=== PATIENT | female | born 1980 | race Caucasian/White ===

== ENCOUNTER 2016-12-18 11:10 | Outpatient (CLI) | payer MEDICAID | END 2016-12-18 11:11 | disposition home or self-care (01) | DX: R53.83 Other fatigue (principal); M79.7 Fibromyalgia; G43.909 Migraine, unspecified, not intractable, without status migrainosus ==

== ENCOUNTER 2016-12-31 09:57 | Outpatient (CLI) | payer MEDICAID | END 2016-12-31 09:58 | disposition home or self-care (01) | DX: G47.10 Hypersomnia, unspecified (principal); G47.8 Other sleep disorders; R06.83 Snoring ==

== ENCOUNTER 2017-04-01 19:46 | Outpatient (CLI) | payer MEDICAID | END 2017-04-01 19:47 | disposition home or self-care (01) | LOC: SC 19:46 | PROVIDERS: ATTEND Internal Medicine Pulmonary Disease | DX: G47.10 Hypersomnia, unspecified (principal); G47.8 Other sleep disorders | CPT/HCPCS: 95810 ==

== ENCOUNTER 2017-06-17 15:03 | Outpatient (CLI) | payer MEDICAID | END 2017-06-17 15:04 | disposition home or self-care (01) | LOC: SC 15:03 | PROVIDERS: ATTEND Internal Medicine Pulmonary Disease | DX: G47.10 Hypersomnia, unspecified (principal); R53.83 Other fatigue | CPT/HCPCS: 99212; 99213 ==

== ENCOUNTER 2017-09-05 21:19 | Emergency (ER) | payer MEDICAID ==
--- NOTE | 2017-09-05 21:59 | ED Physician Documentation ---
PD HPI FEMALE - Stated complaint Stated Complaint: FEMALE - Chief complaint Chief Complaint: General - History obtained from History obtained from: Patient - History of Present Illness Timing - onset: How many days ago (several) Timing - duration: Weeks (2) Timing - details: Gradual onset, Still present, Waxing and waning Associated symptoms: Other (Pain with BMs the past 2 weeks. Trace blood with stools at times. Some firm stools but not constipated. denies rectal intercourse. Pain did get worse last night during vaginal intercourse.). No: Fever, Vaginal pain, Vaginal bleeding, Vaginal discharge, Dysuria Similar symptoms before: Has not had sx before Recently seen: Not recently seen Review of Systems Constitutional: denies: Fever, Chills GI: denies: Abdominal Pain, Vomiting, Constipation, Diarrhea : denies: Dysuria, Frequency Skin: denies: Rash, Lesions PD PAST MEDICAL HISTORY - Past Medical History Cardiovascular: None Respiratory: Asthma Neuro: Headache/migraine Endocrine/Autoimmune: None Psych: Depression Musculoskeletal: Osteoarthritis, Fibromyalgia - Past Surgical History Past Surgical History: Yes General: Cholecystectomy /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 COORDINATOR: section - Present Medications Home Medications: Ambulatory Orders Medication Instructions Recorded Confirmed Albuterol Sulfate [Proair Hfa] 09/05/14 09/05/14 Cetirizine [ZyrTEC] 1 tab PO DAILY 09/05/14 09/05/14 Sumatriptan Succinate [Imitrex] 09/05/14 09/05/14 Topiramate [Topamax] 2 tab PO DAILY 09/05/14 09/05/14 Venlafaxine [Effexor] 1 tab PO DAILY 09/05/14 09/05/14 Docusate Sodium 200 mg PO DAILY #30 capsule 09/05/17 HYDROcod/ACETAM 5/325 [[place] 5/325] 1 tab PO Q6H PRN #12 tablet 09/05/17 Hydrocortisone Acetate [Anucort-Hc] 25 mg RC DAILY #5 supp.rect 09/05/17 Metronidazole [Flagyl] 500 mg PO BID #10 tablet 09/05/17 Sulfamethox/Trimeth 800/160 1 tab PO BID 09/05/17 09/05/17 [Bactrim Ds] - Allergies Allergies/Adverse Reactions: Allergies Allergy/AdvReac Type Severity Reaction Status Date / Time amoxicillin trihydrate * Allergy Dizziness Verified 09/05/14 11:16 [From Augmentin] potassium clavulanate * Allergy Dizziness Verified 09/05/14 11:16 [From Augmentin] - Social History Does the pt smoke?: No Smoking Status: Never smoker Does the pt drink ETOH?: No Does the pt have substance abuse?: No PD ED PE NORMAL - Vitals Vital signs reviewed: Yes - General General: Alert and oriented X 3, Well developed/nourished - HEENT HEENT: Pharynx benign - Neck Neck: Supple, no meningeal sign, No adenopathy - Cardiac Cardiac: RRR, No murmur - Respiratory Respiratory: Clear bilaterally - Abdomen Abdomen: Soft, Non tender - Female Female : Deferred - Rectal Rectal: Other (no perirectal fullness nor tenderness. external anal area normal. Digital exam with some fullness/inflammation on right side, without fluctuance. Possible little cleft feeling c/w fissure or tear. Anoscopy not done. Minimal stool in vault. ) - Back Back: No CVA TTP - Derm Derm: Normal color, Warm and dry Results - Vitals Vitals: Vital Signs - 24 hr 09/05/17 09/05/17 21:31 22:50 Heart Rate 118 H 99 Respiratory 18 16 Rate Blood Pressure 122/87 H 124/68 O2 Saturation 99 100 Oxygen O2 Source Room air PD MEDICAL DECISION MAKING - ED course Complexity details: reviewed results, considered differential (By digital exam, feels like some focal area of inflammation in rectal area without fluctuance nor bulging. Possible cleft c/w fissure. No perirectal fullness. ), d/w patient Departure - Departure Disposition: 01 Home, Self Care Clinical Impression: Proctitis, Rectal pain Serosal tear of rectum Qualifiers: Encounter type: initial encounter Qualified Code(s): S36.63XA - Laceration of rectum, initial encounter Condition: Stable Record reviewed to determine appropriate education?: Yes Follow-Up: Marguerite Cardona ARNP [Primary Care Provider] - Prescriptions: Docusate Sodium 200 mg PO DAILY #30 capsule HYDROcod/ACETAM 5/325 [[place] 5/325] 1 tab PO Q6H PRN #12 tablet PRN Reason: Pain Hydrocortisone Acetate [Anucort-Hc] 25 mg RC DAILY #5 supp.rect Metronidazole [Flagyl] 500 mg PO BID #10 tablet Comments: I think it feels like a small tear on the inside of the rectum rather than a hemorrhoid. There is some inflammation in the area so presume an infection to it. I do not feel an abscess feeling. It is close to the rectum opening and so does not seem like diverticulitis but more will be turned proctitis. The germs contributing to this are similar for diverticulitis. I would continue the Bactrim you are on for your skin infection and add metronidazole twice daily for the next 5 days. Use docusate stool softener 2 tablets daily for the next week and then to 1 tablet daily. Anucort suppository daily for 5 days for the inflammation in the rectal area. Add Tylenol or hydrocodone if needed for pains. Follow-up with your primary care or return to ER in the next several days if not improved. Discharge Date/Time: 09/05/17 22:51
[2017-09-05] MEDS ORDERED: metroNIDAZOLE 250 MG TABLET PO STA (22:29)
[2017-09-05] MEDS ORDERED: DOCUSATE SODIUM 100 MG CAPSULE PO STA (22:29)
[2017-09-05] MEDS ORDERED: HYDROCORTISONE 25 MG SUPPOSITORY PR STA (22:29)
[2017-09-05] MEDS ORDERED: HYDROcod/ACETAM 5/325 MG TABLET PO STA (22:29)
[2017-09-05] MEDS ORDERED: metroNIDAZOLE 250 MG TABLET PO ONE (22:47)
[2017-09-05 22:51] VITALS: BP 124/68
== END 2017-09-05 22:51 | disposition home or self-care (01) ==
LOC: ED 21:19
DX: K51.20 Ulcerative (chronic) proctitis without complications (principal); K62.89 Other specified diseases of anus and rectum; S36.63XA Laceration of rectum, initial encounter; X58.XXXA Exposure to other specified factors, initial encounter
CPT/HCPCS: 99283; A9270; J3490

== ENCOUNTER 2017-12-07 22:07 | Emergency (ER) | payer MEDICAID ==
[2017-12-07] MEDS ORDERED: HYDROcod/ACET 5/325 Prepack 4 PO STA (22:52)
--- NOTE | 2017-12-07 22:57 | ED Physician Documentation ---
PD HPI FEMALE - Stated complaint Stated Complaint: FEMALE - Chief complaint Chief Complaint: Abd Pain - History obtained from History obtained from: Patient, Family - History of Present Illness Timing - onset: Other (She has a history of an anal fissure and last night developed severe rectal pain. She is modestly constipated. There is a trace of bleeding.) Review of Systems Constitutional: denies: Fever, Chills Respiratory: reports: Reviewed and negative GI: reports: Reviewed and negative PD PAST MEDICAL HISTORY - Past Medical History Past Medical History: Yes Cardiovascular: None Respiratory: Asthma Neuro: Headache/migraine Endocrine/Autoimmune: None GI: Other Psych: Depression Musculoskeletal: Osteoarthritis, Fibromyalgia Other Past Medical History: Anal fissure - Past Surgical History Past Surgical History: Yes General: Cholecystectomy /SECURITY POLICE: section - Present Medications Home Medications: Ambulatory Orders Medication Instructions Recorded Confirmed Albuterol Sulfate [Proair Hfa] 09/05/14 09/05/14 Cetirizine [ZyrTEC] 1 tab PO DAILY 09/05/14 09/05/14 Sumatriptan Succinate [Imitrex] 09/05/14 09/05/14 Topiramate [Topamax] 2 tab PO DAILY 09/05/14 09/05/14 Venlafaxine [Effexor] 1 tab PO DAILY 09/05/14 09/05/14 Docusate Sodium 200 mg PO DAILY #30 capsule 09/05/17 HYDROcod/ACETAM 5/325 [[place] 5/325] 1 - 2 ea PO Q6H PRN #7 tablet 12/07/17 - Allergies Allergies/Adverse Reactions: Allergies Allergy/AdvReac Type Severity Reaction Status Date / Time amoxicillin trihydrate * Allergy Dizziness Verified 12/07/17 22:21 [From Augmentin] potassium clavulanate * Allergy Dizziness Verified 12/07/17 22:21 [From Augmentin] - Social History Does the pt smoke?: No Smoking Status: Never smoker Does the pt drink ETOH?: No Does the pt have substance abuse?: No - Immunizations Immunizations are current?: No - POLST Patient has POLST: No PD ED PE NORMAL - Vitals Vital signs reviewed: Yes - General General: Alert and oriented X 3, No acute distress - Abdomen Abdomen: Normal bowel sounds, Soft, Non tender - Rectal Rectal: Other (With Yancy H RN. She has a thrombosed left sided external hemorrhoid about 1.5cm diameter.) - Back Back: No CVA TTP, No spinal TTP - Neuro Neuro: Alert and oriented X 3, Normal speech Results - Vitals Vitals: Vital Signs - 24 hr 12/07/17 22:14 Temperature 36.4 C L Heart Rate 76 Respiratory 18 Rate Blood Pressure 122/87 H O2 Saturation 100 Oxygen O2 Source Room air Procedures - General procedure General procedure: After informed consent she requested incision and drainage of her thrombosed external hemorrhoid. The base was infiltrated with a 50-50 mixture of lidocaine with epinephrine and bupivacaine with excellent anesthetic control and then a Incision was made over the top of the hemorrhoid and the clot was expressed with relief of her pain. Departure - Departure Disposition: 01 Home, Self Care Clinical Impression: Thrombosed external hemorrhoid Condition: Good Record reviewed to determine appropriate education?: Yes Instructions: Galo Villanueva, Hemorrhoid Surg Dc Prescriptions: HYDROcod/ACETAM 5/325 [[place] 5/325] 1 - 2 ea PO Q6H PRN #7 tablet PRN Reason: Pain Comments: Hopefully after the incision your pain will be much better. Try to avoid the use of narcotic pain medication as much as possible and keep her stools very loose by drinking a lot of water, eating a high-fiber diet, and using stool softeners and laxatives. Follow-up with the surgeon as scheduled.
[2017-12-07 23:22] VITALS: BP 110/67
== END 2017-12-07 23:22 | disposition home or self-care (01) ==
LOC: ED 22:07
DX: K64.5 Perianal venous thrombosis (principal); J45.909 Unspecified asthma, uncomplicated; M79.7 Fibromyalgia; F32.9 Major depressive disorder, single episode, unspecified
CPT/HCPCS: 46083; 99283

== ENCOUNTER 2018-07-28 10:44 | Emergency (ER) | payer MEDICAID ==
[2018-07-28] MEDS ORDERED: SODIUM CHLORIDE 0.9% 1,000 ML IV ONE (13:04)
[2018-07-28] MEDS ORDERED: KETOROLAC 60 MG/2 ML VIAL IVP STA (13:04)
[2018-07-28] MEDS ORDERED: PROCHLORPERAZINE 10 MG/2 ML VIAL IVP STA (13:04)
[2018-07-28] MEDS ORDERED: diphenhydrAMINE INJ 50 MG/ML VIAL IVP STA (13:04)
--- NOTE | 2018-07-28 13:06 | ED Physician Documentation ---
History of Present Illness - Stated complaint Stated Complaint: MIGRAINE - Chief complaint Chief Complaint: General - Additonal information Additional information: hx from pt 37 y/o f s/p tubal ligation hx migraines mograine X 5 days R frontal same as prior no fever neck stiffness no CO exposure no trauma has topamax preventitive, sumatriptan abortive and also tried advil migraine s relief Review of Systems Constitutional: denies: Fever Cardiac: denies: Chest pain / pressure Respiratory: denies: Dyspnea GI: reports: Nausea : reports: Control (tubal). 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 HEENT: None Psych: Depression, Anxiety, Post traumatic stress disorder Musculoskeletal: Osteoarthritis, Fibromyalgia Derm: None - Past Surgical History Past Surgical History: Yes General: Cholecystectomy /GENERAL MERCHANDISE MANAGER: section, Tubal ligation - Present Medications Home Medications: Ambulatory Orders Medication Instructions Recorded Confirmed Albuterol Sulfate [Proair Hfa] 09/05/14 09/05/14 Cetirizine [ZyrTEC] 1 tab PO DAILY 09/05/14 09/05/14 Sumatriptan Succinate [Imitrex] 09/05/14 09/05/14 Topiramate [Topamax] 2 tab PO DAILY 09/05/14 09/05/14 Venlafaxine [Effexor] 1 tab PO DAILY 09/05/14 09/05/14 Docusate Sodium 200 mg PO DAILY #30 capsule 09/05/17 HYDROcod/ACETAM 5/325 [[place] 5/325] 1 - 2 ea PO Q6H PRN #7 tablet 12/07/17 - Allergies Allergies/Adverse Reactions: Allergies Allergy/AdvReac Type Severity Reaction Status Date / Time amoxicillin trihydrate * Allergy Dizziness Verified 12/07/17 22:21 [From Augmentin] potassium clavulanate * Allergy Dizziness Verified 12/07/17 22:21 [From Augmentin] - Social History Does the pt smoke?: No Smoking Status: Never smoker Does the pt drink ETOH?: No Does the pt have substance abuse?: No - Immunizations Immunizations are current?: Yes - POLST Patient has POLST: No PD ED PE NORMAL - Vitals Vital signs reviewed: Yes - General General: Alert and oriented X 3 - HEENT HEENT: PERRL, Other (globes soft, no TA TTP) - Neck Neck: Supple, no meningeal sign - Cardiac Cardiac: RRR - Respiratory Respiratory: No respiratory distress, Clear bilaterally - Abdomen Abdomen: Soft, Non tender - Derm Derm: Normal color - Neuro Neuro: Alert and oriented X 3 Eye Opening: Spontaneous Motor: Obeys Commands Verbal: Oriented GCS Score: 15 Results - Vitals Vitals: Vital Signs - 24 hr 07/28/18 11:27 Temperature 36.2 C L Heart Rate 90 Respiratory 16 Rate Blood Pressure 119/92 H O2 Saturation 98 Oxygen O2 Source Room air PD MEDICAL DECISION MAKING - ED course ED course: pt felt better dc home Departure - Departure Disposition: 01 Home, Self Care Clinical Impression: Migraine Qualifiers: Migraine type: unspecified Status migrainosus presence: without status migrainosus Intractability: not intractable Qualified Code(s): G43.909 - Migraine, unspecified, not intractable, without status migrainosus Condition: Good Instructions: ED Headache Migraine Forms: Activity restrictions
[2018-07-28 16:20] VITALS: BP 121/80
== END 2018-07-28 16:23 | disposition home or self-care (01) ==
LOC: ED 10:44
DX: G43.909 Migraine, unspecified, not intractable, without status migrainosus (principal)
CPT/HCPCS: 96361; 96374; 96375; 99283; J1200

== ENCOUNTER 2018-09-04 07:05 | Outpatient (CLI) | payer MEDICAID ==
--- NOTE | 2018-09-05 10:50 | Ultrasound Report ---
Reason: DECREASED DORSALIS PEDIS PULSE Procedure Date: 09/04/2018 Accession Number: [id number] / [id number] Procedure: US - Duplex Lwr Ext Arterial Bilat CPT Code: FULL RESULT: EXAM: Bilateral Lower Extremity Arterial Doppler Ultrasound EXAM DATE: 09/04/2018 07:35 PM. CLINICAL HISTORY: Decreased dorsalis pedis pulse. COMPARISON: None. TECHNIQUE: Real-time sonographic vascular imaging was performed by the sod farmer, utilizing color-flow, Doppler flow, and spectral analysis. Multiple ict sales representative static images were saved for review. FINDINGS: No hemodynamically significant stenosis, occlusion, dissection or aneurysm is noted in the arterial system of both lower extremities. With the exception of the monophasic waveforms in both profunda femoral arteries, all the evaluated vessels demonstrate triphasic or biphasic waveforms. Spectral waveform analysis is as follows: Right Leg: DISTRIBUTION FIELD ENGINEER: PSV 136.0 cm/sec. Triphasic waveform. PSFA: PSV 124.0 cm/sec. Triphasic waveform. MSFA: PSV 96.8 cm/sec. Triphasic waveform. DSFA: PSV 86.4 cm/sec. Triphasic waveform. PFA: PSV 92.2 cm/sec. Monophasic waveform. POP: PSV 61.0 cm/sec. Triphasic waveform. JESSIE: PSV 57.9 cm/sec. Triphasic waveform. HACK SAW OPERATOR: PSV 42.4 cm/sec. Biphasic waveform. PER: PSV 48.1 cm/sec. Triphasic waveform. DPA: PSV 38.8 cm/sec. Baseline waveform. Left Leg: DISTRIBUTION FIELD ENGINEER: PSV 103.4 cm/sec. Triphasic waveform. PSFA: PSV 111.8 cm/sec. Triphasic waveform. MSFA: PSV 117.6 cm/sec. Triphasic waveform. DSFA: PSV 98.3 cm/sec. Triphasic waveform. PFA: PSV 90.8 cm/sec. Monophasic waveform. POP: PSV 34.7 cm/sec. Triphasic waveform. JESSIE: PSV 44.1 cm/sec. Triphasic waveform. HACK SAW OPERATOR: PSV 45.9 cm/sec. Biphasic waveform. PER: PSV 53.8 cm/sec. Triphasic waveform. DPA: PSV 40 cm/sec. Biphasic waveform. IMPRESSION: 1. No hemodynamically significant occlusion, dissection, aneurysm or stenosis. RADIA
== END 2018-09-04 07:06 | disposition home or self-care (01) ==
LOC: DI 07:05
PROVIDERS: ATTEND Nurse Practitioner Family
DX: R09.89 Other specified symptoms and signs involving the circulatory and respiratory systems (principal)
CPT/HCPCS: 93925

== ENCOUNTER 2018-12-29 12:57 | Outpatient (CLI) | payer MEDICAID ==
--- NOTE | 2018-12-29 15:46 | XRAY Report ---
Reason: KNEE PAIN,RIGHT Procedure Date: 12/29/2018 Accession Number: [id number] / [id number] Procedure: XR - Knee 4 View RT CPT Code: FULL RESULT: EXAM: RIGHT KNEE RADIOGRAPHY EXAM DATE: 12/29/2018 02:11 PM. CLINICAL HISTORY: Knee pain, right. COMPARISON: KNEE 4 VIEW BILAT 05/02/2016 1:28 PM. TECHNIQUE: 3 views. FINDINGS: Bones: Normal. No fractures or bone lesions. Joints: Mild loss of joint space height of both weightbearing compartments, similar to 2016. No subluxation or effusion. Soft Tissues: Normal. No soft tissue swelling. IMPRESSION: No acute fracture or dislocation and no significant joint effusion. RADIA
== END 2018-12-29 12:58 | disposition home or self-care (01) ==
LOC: DI 12:57
PROVIDERS: ATTEND Physician Assistant Medical
DX: M25.561 Pain in right knee (principal)

== ENCOUNTER 2019-02-27 05:51 | Day surgery (SDC) | payer MEDICAID ==
[2019-02-27] MEDS ORDERED: CEFAZOLIN SODIUM IN 0.9 % NACL 0 GM/0 ML BAG IV ONE (06:33)
[2019-02-27] MEDS ORDERED: LACTATED RINGERS 1,000 ML IV ONE (07:01)
--- NOTE | 2019-02-27 07:13 | ANESTHESIA ---
Pre-Anesthesia VS, & Labs - Diagnosis recurrent anal fissure - Procedure EUA, anal fissurotomy Vital Signs: Temp Pulse Resp BP Pulse Ox 36.4 C L 86 16 121/81 H 100 02/27/19 06:46 02/27/19 06:46 02/27/19 06:46 02/27/19 06:46 02/27/19 06:46 Height 5 ft 7 in Weight (kg) 97.7 kg Body Mass Index 31.3 - NPO >8 hours - Is Patient ?: No Home Medications and Allergies Home Medications: Ambulatory Orders Cyclobenzaprine [Flexeril] 10 mg PO QPM PRN 02/17/19 Montelukast Sodium 10 mg PO DAILY 02/17/19 Topiramate 100 mg PO QPM 02/17/19 Albuterol Sulfate [Proair Hfa] 2 puffs INH Q4HR PRN 09/05/14 Cetirizine [ZyrTEC] 10 mg PO DAILY 09/05/14 Sumatriptan Succinate [Imitrex] 100 mg PO ONCE PRN 09/05/14 Venlafaxine [Effexor] 150 tab PO DAILY 09/05/14 Cyclobenzaprine [Flexeril] 10 mg PO QPM PRN 02/17/19 Montelukast Sodium 10 mg PO DAILY 02/17/19 Topiramate 100 mg PO QPM 02/17/19 Allergies/Adverse Reactions: Allergies Allergy/AdvReac Type Severity Reaction Status Date / Time amoxicillin trihydrate * Allergy Dizziness, Verified 02/17/19 15:33 [From Augmentin] nausea potassium clavulanate * Allergy Dizziness, Verified 02/17/19 15:33 [From Augmentin] nausea fluticasone [From Flonase] AdvReac Unknown Verified 02/27/19 07:02 Anes History & Medical History - Anesthetic History Anesthesia Complications: reports: No previous complications Family history of Anesthesia Complications: Denies Family history of Malignant Hyperthermia: Denies - Medical History Cardiovascular: reports: Arrhythmia Pulmonary: reports: Asthma Gastrointestinal: reports: GERD Urinary: reports: Chronic bladder infection Neuro: reports: Migraines Musculoskeletal: reports: Osteoarthritis, Fibromyalgia, Other Endocrine/Autoimmune: reports: None Blood Disorders: reports: None Skin: reports: None Smoking Status: Never smoker - Surgical History General: Cholecystectomy Gynecologic: section, Tubal ligation Exam General: Alert, Oriented x3, Cooperative Dental: WNL Mouth Openin Fingerbreadth Neck Mobility: Normal Mallampati classification: II Thyromental Distance: 4-6 cm Respiratory: Lungs clear, Normal breath sounds Cardiovascular: Regular rate Neurological: Normal speech Mental/Cognitive Status: Alert/Oriented X3, Normal for patient Cognitive Status: Within normal limits Plan Anesthesia Type: General Consent for Procedure(s) Verified and Reviewed: Yes Code Status: Attempt Resuscitation ASA classification: 2-Mild systemic disease Is this case an emergency?: No
[2019-02-27] MEDS ORDERED: BUPIVACAINE 0.5%-EPI 1:200000 PF 30 ML VIAL ONE (07:24)
[2019-02-27] MEDS ORDERED: LIDOCAINE 1% 50 ML MDV ONE (07:24)
[2019-02-27] MEDS ORDERED: LIDOCAINE OINTMENT 5% 35.44 GM TUBE ONE (07:24)
[2019-02-27] MEDS ORDERED: GLYCOPYRROLATE 1 MG/5 ML VIAL IVP ONE (07:30)
[2019-02-27] MEDS ORDERED: LIDOCAINE-MPF 2% 5 ML VIAL IM ONE (07:30)
[2019-02-27] MEDS ORDERED: PROPOFOL 200 MG/20 ML VIAL IVP ONE (07:30)
[2019-02-27] MEDS ORDERED: ONDANSETRON 4 MG/2 ML VIAL IVP ONE (07:30)
[2019-02-27] MEDS ORDERED: ROCURONIUM 50 MG/5 ML VIAL IVP ONE (07:30)
[2019-02-27] MEDS ORDERED: DEXAMETHASONE 4 MG/ML VIAL IVP ONE (07:30)
[2019-02-27] MEDS ORDERED: KETOROLAC 30 MG/ML VIAL IVP ONE (07:30)
[2019-02-27] MEDS ORDERED: fentaNYL 100 MCG/2 ML VIAL IVP ONE (07:30)
[2019-02-27] MEDS ORDERED: MIDAZOLAM 2 MG/2 ML VIAL IVP ONE (07:30)
[2019-02-27] MEDS ORDERED: NEOSTIGMINE 0.5 MG/1 ML 10 ML MDV IVP ONE (07:30)
[2019-02-27] MEDS ORDERED: LIDOCAINE OINTMENT 5% 35.44 GM TUBE TOP ONE (08:16)
[2019-02-27] MEDS ORDERED: BUPIVACAINE 0.5%-EPI 1:200000 PF 30 ML VIAL SUBQ ONE ×2 (08:17)
[2019-02-27] MEDS ORDERED: LIDOCAINE 1% 10 ML MDV SUBQ ONE ×2 (08:17)
[2019-02-27] MEDS ORDERED: LIDOCAINE JELLY 2% 5 ML TUBE TOP ONE (08:30)
[2019-02-27] MEDS ORDERED: HYDROcod/ACETAM 5/325 MG TABLET PO PRN (08:32)
[2019-02-27] MEDS ORDERED: ONDANSETRON 4 MG/2 ML VIAL IVP PRN (08:32)
[2019-02-27] MEDS ORDERED: HYDROmorphone 0.5 MG/0.5 ML SYRINGE IVP PRN (08:32)
--- NOTE | 2019-02-27 08:39 | OPERATIVE REPORT ---
Operative Report - General Planned Procedure: Exam under anesthesia, anal fissurectomy, anal dilation Pre-Op Diagnosis: Recurrent anal fissure Procedure Performed: Exam under anesthesia, anal dilation, anal fissurectomy, excision of anal skin tag x2 (old external hemorrhoids) Post Op Diagnosis: Same - Procedure Note Primary Surgeon: Hesham Dow MD Anesthesia Provider: Chaz Ramos CRNA Anesthesia Technique: General ET tube, Local (42 mL of 1% lidocaine and 0.5% marcaine with epinephrine mixed 50/50.) IV Fluids (mL): 500 Estimated Blood Loss (mL): 5 Complications: None. - Other Other Information/Narrative: OPERATIVE DESCRIPTION/REPORT: After verbal and written informed consent was obtained detailing the risks of infection, bleeding requiring transfusion with its risks, nerve injury, and , and after I met with the patient confirming the surgery and the site of the surgery, the patient was brought to the operative suite and placed supine on the operating table. Great care was taken to avoid pressure points to prevent pressure necrosis or nerve injury. Monitoring devices were applied along with TEDs and pneumatic compressive stockings (to prevent DVT). The patient received preoperative antibiotics for surgical prophylaxis. Chaz Ramos CRNA sedated and anesthetized the patient for the entire procedure. The patient was then placed prone in the ashlie-knife position, again taking care to ensure that we pre vented pressure point. The patients buttocks were taped apart and the patient was prepped and draped in the usual sterile manner. A "time in" then confirmed that the patient was identified with 3 identifiers (name, date and medical record number), the history and physical was in the chart, the signed consent confirming the procedure was in the chart, the patient was in the correct position, the aforementioned prophylactic measures were in place or given, we had the correct personnel and equipment to complete the procedure and that anesthesia, surgery and nursing were given an opportunity to express any concerns. With the agreement of everyone in the room, we proceeded with the operation. Gentle and progressive dilation of the patient's anus commenced with a water- soluble lubricant. One finger, 2 finger, and finally 3 finger dilation was performed. A bivalve anal dilator was then inserted into the patient's anus and again using the aid of a water-soluble lubricant and the fissure was clearly noted at the 12 o'clock position. It was a little bit biased more towards the 10 o'clock position than the 2 o'clock position but the majority of the lesion was centered about the 12 o'clock position. This fissure was excised using serial application of Bovie electrocautery. With the fissure having been addressed there were 2 small remnant external hemorrhoids/skin tags (located at the 2 and 5 o'clock position). These were excised using serial application of the harmonic scalpel. There was no bleeding. A roll of gelfoam and lidocaine jelly was fashioned and inserted into the patients anus. The perianal area was injected with 30 mL of half percent Marcaine with epinephrine circumferentially. At this point a time out was performed that confirmed that all the counts were correct, the procedure that was performed, the blood loss, the IV fluids administered, and the patients condition. Having tolerated the procedure well, the patient was subsequently taken to short stay in good and stable condition. Dragon disclaimer: This document was created in part using voice recognition technology. Because of the inherent limitations of the system ([employer]'s Dragon Dict[employer] user manual states that the licensee understands that speech recognition is a statistical process and that recognition errors are inherent in the process), occasional same sounding word substitutions and grammatical errors do occur and persist despite proofreading. Please read this document for context.
[2019-02-27 10:04] VITALS: BP 112/77
== END 2019-02-27 05:52 | disposition home or self-care (01) ==
LOC: SDS 05:51
PROVIDERS: ATTEND Surgery
PROC: 0DBQXZZ Excision of Anus, External Approach (ICD-10-PCS; principal; 2019-02-27 07:30)
DX: K60.2 Anal fissure, unspecified (principal); K64.4 Residual hemorrhoidal skin tags; J45.909 Unspecified asthma, uncomplicated; R56.9 Unspecified convulsions; F41.9 Anxiety disorder, unspecified; G43.909 Migraine, unspecified, not intractable, without status migrainosus; M79.7 Fibromyalgia; M19.90 Unspecified osteoarthritis, unspecified site; Z79.51 Long term (current) use of inhaled steroids; Z87.891 Personal history of nicotine dependence
CPT/HCPCS: 46257; A9270; J3490; J7120

== ENCOUNTER 2019-06-14 12:07 | Emergency (ER) | payer MEDICAID ==
[2019-06-14 12:12] VITALS: BP 121/85
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
[2019-06-14] MEDS ORDERED: NAPROXEN 250 MG TABLET PO STA (13:09)
--- NOTE | 2019-06-14 13:12 | XRAY Report ---
Reason: R elbow pain Procedure Date: 06/14/2019 Accession Number: [id number] / [id number] Procedure: XR - Elbow 3 View RT CPT Code: FULL RESULT: EXAM: RIGHT ELBOW RADIOGRAPHY EXAM DATE: 06/14/2019 12:39 PM. CLINICAL HISTORY: R elbow pain. COMPARISON: None. TECHNIQUE: 3 views. FINDINGS: Bones: Normal. No fractures or bone lesions. Joints: Normal. No effusion. No subluxation. Soft Tissues: Normal. No soft tissue swelling. IMPRESSION: Normal elbow radiography. RADIA
== END 2019-06-14 13:24 | disposition home or self-care (01) ==
LOC: ED 12:07
DX: S50.01XA Contusion of right elbow, initial encounter (principal); W22.8XXA Striking against or struck by other objects, initial encounter
CPT/HCPCS: 73080; 99282; 99283; A9270

== ENCOUNTER 2020-04-20 12:56 | Outpatient (CLI) | payer MEDICAID ==
[2020-04-20 13:14] LABS: BASOPHILS % (AUTO) 0.5 %; EOSINOPHILS # (AUTO) 0.1 10^3/uL (0.0-0.7); EOSINOPHILS % (AUTO) 1.6 %; HGB - HEMOGLOBIN 14.5 g/dL (12.0-16.0); LYMPHOCYTES % (AUTO) 27.3 %; MEAN CORPUSCULAR HGB CONC 33.6 g/dL (32.0-36.0); MEAN CORPUSCULAR VOLUME 89.3 fL (81.0-99.0); MEAN PLATELET VOLUME 9.5 fL (7.9-10.8); MONOCYTES # (AUTO) 0.5 10^3/uL (0.0-1.0); MONOCYTES % (AUTO) 7.4 %; NEUTROPHILS # (AUTO) 4.6 10^3/uL (1.5-6.6); NEUTROPHILS % (AUTO) 62.8 %; PLT - PLATELET COUNT 247 10^3/uL (130-450); RED BLOOD COUNT 4.84 10^6/uL (4.20-5.40); RED CELL DISTRIBUTION WIDTH 12.3 % (12.0-15.0); WHITE BLOOD COUNT 7.3 x10^3/uL (4.8-10.8)
[2020-04-20 13:47] LABS: ALBUMIN 4.3 g/dL (3.2-5.5); ALBUMIN/GLOBULIN RATIO 1.2 (1.0-2.2); ALKALINE PHOSPHATASE 80 IU/L (42-121); ALT ALANINE AMINOTRANSFERASE 12 IU/L (10-60); AST ASPARTATE AMINOTRANSFERASE 14 IU/L (10-42); BILIRUBIN,TOTAL 0.5 mg/dL (0.2-1.0); BUN - BLOOD UREA NITROGEN 15 mg/dL (6-20); CALCIUM 10.3 mg/dL (8.5-10.3); CARBON DIOXIDE - CO2 22 mmol/L (21-32); CHLORIDE 108 mmol/L (101-111); CHOL/HDL RATIO 4.7 (<4.4); CHOLESTEROL 208 mg/dL; CREATININE 0.7 mg/dL (0.4-1.0); GLUCOSE 90 mg/dL (70-100); HDL CHOLESTEROL 44 mg/dL; LDL CHOLESTEROL,CALCULATED 106 mg/dL; LDL/HDL RATIO 2.4 (<4.4); SODIUM 137 mmol/L (135-145); TOTAL PROTEIN 7.8 g/dL (6.7-8.2); VLDL CHOLESTEROL 58 mg/dL
== END 2020-04-20 12:57 | disposition home or self-care (01) ==
LOC: LAB 12:56
PROVIDERS: ATTEND Nurse Practitioner
DX: E53.8 Deficiency of other specified B group vitamins (principal); M79.7 Fibromyalgia; E55.9 Vitamin D deficiency, unspecified; F41.9 Anxiety disorder, unspecified; Z79.899 Other long term (current) drug therapy
CPT/HCPCS: 36415; 80050; 80061; 82306; 83721

== ENCOUNTER 2020-08-04 14:19 | Outpatient (CLI) | payer MEDICAID ==
--- NOTE | 2020-08-04 14:21 | XRAY Report ---
PROCEDURE: Cervical Spine 2 View INDICATIONS: RIGHT CERVICAL RADICULOPATHY TECHNIQUE: 3 view(s) of the cervical spine were acquired. COMPARISON: None. FINDINGS: Bones: No fractures or dislocations to the T1 level. The lateral masses of C1 appear intact on the odontoid view. No suspicious bony lesions. No acute compression fractures. Mild cervical spondyliti c changes of the lower spine cervical spine most pronounced at C5-6. Soft tissues: No prevertebral soft tissue swelling. IMPRESSION: Cervical spine without acute fracture or malalignment. Mild lower cervical spondylosis. Reviewed by: Ghassan Posey MD on 08/04/2020 2:19 PM PST Approved by: Ghassan Posey MD on 08/04/2020 2:19 PM PST Station ID: [id number]
== END 2020-08-04 23:59 | disposition home or self-care (01) ==
LOC: DI.WCP 14:19
PROVIDERS: ATTEND Family Medicine
DX: M47.812 Spondylosis without myelopathy or radiculopathy, cervical region (principal)
CPT/HCPCS: 72040

== ENCOUNTER 2020-12-28 11:28 | Outpatient (CLI) | payer MEDICAID ==
[2020-12-28 11:52] LABS: BASOPHILS % (AUTO) 0.8 %; EOSINOPHILS # (AUTO) 0.1 10^3/uL (0.0-0.7); EOSINOPHILS % (AUTO) 1.5 %; HCT - HEMATOCRIT 45.1 % (37.0-47.0); HGB - HEMOGLOBIN 14.8 g/dL (12.0-16.0); LYMPHOCYTES # (AUTO) 1.8 10^3/uL (1.5-3.5); LYMPHOCYTES % (AUTO) 34.4 %; MEAN CORPUSCULAR HEMOGLOBIN 29.1 pg (27.0-31.0); MEAN CORPUSCULAR HGB CONC 32.8 g/dL (32.0-36.0); MEAN CORPUSCULAR VOLUME 88.8 fL (81.0-99.0); MEAN PLATELET VOLUME 9.2 fL (7.9-10.8); MONOCYTES # (AUTO) 0.4 10^3/uL (0.0-1.0); MONOCYTES % (AUTO) 6.6 %; NEUTROPHILS % (AUTO) 56.5 %; PLT - PLATELET COUNT 277 10^3/uL (130-450); RED BLOOD COUNT 5.08 10^6/uL (4.20-5.40); WHITE BLOOD COUNT 5.3 x10^3/uL (4.8-10.8)
[2020-12-28 12:24] LABS: THYROID STIMULATING HORMONE 1.72 uIU/mL (0.34-5.60)
[2020-12-28 12:25] LABS: FREE T3 2.88 pg/mL (2.5-3.9)
[2020-12-28 12:26] LABS: FREE T4 (FREE THYROXINE) 0.77 ng/dL (0.58-1.64)
[2020-12-28 12:31] LABS: ALBUMIN 4.7 g/dL (3.2-5.5); ALBUMIN/GLOBULIN RATIO 1.5 (1.0-2.2); BILIRUBIN,TOTAL 0.7 mg/dL (0.2-1.0); CALCIUM 11.1 mg/dL (8.5-10.3); CREATININE 0.8 mg/dL (0.4-1.0); POTASSIUM 2.9 mmol/L (3.5-5.0); TOTAL PROTEIN 7.8 g/dL (6.7-8.2)
== END 2020-12-28 11:29 | disposition home or self-care (01) ==
LOC: LAB 11:28
PROVIDERS: ATTEND Nurse Practitioner
DX: R63.4 Abnormal weight loss (principal); Z79.899 Other long term (current) drug therapy; N92.0 Excessive and frequent menstruation with regular cycle
CPT/HCPCS: 36415; 80050; 84439; 84481

== ENCOUNTER 2021-01-06 11:42 | Outpatient (CLI) | payer MEDICAID ==
[2021-01-06 12:16] LABS: CALCIUM 10.1 mg/dL (8.5-10.3); CREATININE 0.7 mg/dL (0.4-1.0); POTASSIUM 3.8 mmol/L (3.5-5.0)
== END 2021-01-06 11:43 | disposition home or self-care (01) ==
LOC: LAB 11:42
PROVIDERS: ATTEND Family Medicine
DX: E87.6 Hypokalemia (principal)
CPT/HCPCS: 36415; 80048; 83735

== ENCOUNTER 2021-02-27 14:30 | Outpatient (CLI) | payer MEDICAID ==
[2021-02-27 14:49] LABS: CREATININE 0.8 mg/dL (0.4-1.0); MAGNESIUM 2.2 mg/dL (1.7-2.8); POTASSIUM 3.7 mmol/L (3.5-5.0)
== END 2021-02-27 23:59 | disposition home or self-care (01) ==
LOC: LAB 14:30
PROVIDERS: ATTEND Family Medicine
DX: E87.6 Hypokalemia (principal); G43.909 Migraine, unspecified, not intractable, without status migrainosus
CPT/HCPCS: 36415; 80048; 83735

== ENCOUNTER 2021-07-07 12:47 | Emergency (ER) | payer OTHER, MEDICAID ==
[2021-07-07 13:23] VITALS: BP 136/86
== END 2021-07-07 14:35 | disposition left against medical advice (07) ==
LOC: ED 12:47
DX: Z53.21 Procedure and treatment not carried out due to patient leaving prior to being seen by health care provider (principal)

== ENCOUNTER 2021-09-15 16:00 | Outpatient (CLI) | payer MEDICAID ==
[2021-09-15 16:48] LABS: BASOPHILS # (AUTO) 0.1 10^3/uL (0.0-0.1); BASOPHILS % (AUTO) 0.5 %; EOSINOPHILS # (AUTO) 0.1 10^3/uL (0.0-0.7); EOSINOPHILS % (AUTO) 1.4 %; HCT - HEMATOCRIT 42.5 % (37.0-47.0); HGB - HEMOGLOBIN 14.5 g/dL (12.0-16.0); LYMPHOCYTES # (AUTO) 2.2 10^3/uL (1.5-3.5); LYMPHOCYTES % (AUTO) 21.8 %; MEAN CORPUSCULAR HEMOGLOBIN 29.6 pg (27.0-31.0); MEAN CORPUSCULAR HGB CONC 34.1 g/dL (32.0-36.0); MEAN CORPUSCULAR VOLUME 86.7 fL (81.0-99.0); MEAN PLATELET VOLUME 9.3 fL (7.9-10.8); MONOCYTES # (AUTO) 0.7 10^3/uL (0.0-1.0); MONOCYTES % (AUTO) 6.6 %; NEUTROPHILS % (AUTO) 69.2 %; PLT - PLATELET COUNT 320 10^3/uL (130-450); WHITE BLOOD COUNT 10.1 x10^3/uL (4.8-10.8)
--- NOTE | 2021-09-15 16:52 | XRAY Report ---
PROCEDURE: Lumbar Spine 2 View INDICATIONS: LUMBAR SPINE PAIN TECHNIQUE: 2 views of the lumbar spine were acquired. COMPARISON: None. FINDINGS: Bones: 5 [id number] vertebrae are present. There is trace retrolisthesis of L2 on L3, L3 on L4 , L4 on L5. Minimal foraminal narrowing is noted L4-5, L5-S1. No vertebral body compression fractures . No suspicious bony lesions. Soft tissues: Overlying bowel gas pattern is normal. No suspicious soft tissue calcifications. IMPRESSION: Early degenerative changes most notable at L4-5 and L5-S1. Reviewed by: Binta Muhammad MD on 09/15/2021 4:51 PM PST Approved by: Binta Muhammad MD on 09/15/2021 4:51 PM PST Station ID: [id number]
[2021-09-15 17:06] LABS: ALBUMIN 4.1 g/dL (3.2-5.5); ALBUMIN/GLOBULIN RATIO 1.2 (1.0-2.2); ALKALINE PHOSPHATASE 86 IU/L (42-121); ALT ALANINE AMINOTRANSFERASE 14 IU/L (10-60); AST ASPARTATE AMINOTRANSFERASE 16 IU/L (10-42); BILIRUBIN,TOTAL 0.5 mg/dL (0.2-1.0); BUN - BLOOD UREA NITROGEN 10 mg/dL (6-20); CALCIUM 9.7 mg/dL (8.5-10.3); CARBON DIOXIDE - CO2 28 mmol/L (21-32); CHLORIDE 99 mmol/L (101-111); CHOL/HDL RATIO 4.8 (<4.4); CHOLESTEROL 187 mg/dL; CREATININE 0.7 mg/dL (0.4-1.0); GFR - MDRD 91 (>89); GLUCOSE 101 mg/dL (70-100); HDL CHOLESTEROL 39 mg/dL; LDL CHOLESTEROL,CALCULATED 76 mg/dL; LDL/HDL RATIO 1.9 (<4.4); POTASSIUM 3.8 mmol/L (3.5-5.0); SODIUM 135 mmol/L (135-145); TOTAL PROTEIN 7.6 g/dL (6.7-8.2); TRIGLYCERIDES 361 mg/dL; VLDL CHOLESTEROL 72 mg/dL
[2021-09-15 17:39] LABS: THYROID STIMULATING HORMONE 1.52 uIU/mL (0.34-5.60)
== END 2021-09-15 16:01 | disposition home or self-care (01) ==
LOC: LAB 16:00
PROVIDERS: ATTEND Family Medicine
DX: E87.6 Hypokalemia (principal); E53.8 Deficiency of other specified B group vitamins; E55.9 Vitamin D deficiency, unspecified; F41.9 Anxiety disorder, unspecified; M43.16 Spondylolisthesis, lumbar region; M48.061 Spinal stenosis, lumbar region without neurogenic claudication; M48.07 Spinal stenosis, lumbosacral region
CPT/HCPCS: 36415; 80050; 80061; 82306; 82607; 83721

== ENCOUNTER 2023-01-23 10:21 | Outpatient (CLI) | payer OTHER ==
[2023-01-23 10:36] LABS: BASOPHILS % (AUTO) 0.5 %; EOSINOPHILS # (AUTO) 0.1 10^3/uL (0.0-0.7); EOSINOPHILS % (AUTO) 1.4 %; HCT - HEMATOCRIT 43.2 % (37.0-47.0); HGB - HEMOGLOBIN 14.3 g/dL (12.0-16.0); LYMPHOCYTES # (AUTO) 2.1 10^3/uL (1.5-3.5); LYMPHOCYTES % (AUTO) 26.6 %; MEAN CORPUSCULAR HEMOGLOBIN 29.2 pg (27.0-31.0); MEAN CORPUSCULAR HGB CONC 33.1 g/dL (32.0-36.0); MEAN CORPUSCULAR VOLUME 88.3 fL (81.0-99.0); MEAN PLATELET VOLUME 9.1 fL (7.9-10.8); MONOCYTES # (AUTO) 0.6 10^3/uL (0.0-1.0); MONOCYTES % (AUTO) 7.1 %; NEUTROPHILS % (AUTO) 64.1 %; PLT - PLATELET COUNT 273 10^3/uL (130-450); RED BLOOD COUNT 4.89 10^6/uL (4.20-5.40); RED CELL DISTRIBUTION WIDTH 12.2 % (12.0-15.0); WHITE BLOOD COUNT 7.7 x10^3/uL (4.8-10.8)
[2023-01-23 10:54] LABS: ESTIMATED AVERAGE GLUCOSE 100 mg/dL (70-100); HEMOGLOBIN A1c% 5.1 % (4.27-6.07)
[2023-01-23 11:03] LABS: ALBUMIN 3.9 g/dL (3.2-5.5); ALBUMIN/GLOBULIN RATIO 1.1 (1.0-2.2); ALKALINE PHOSPHATASE 85 IU/L (42-121); ALT ALANINE AMINOTRANSFERASE 11 IU/L (10-60); AST ASPARTATE AMINOTRANSFERASE 15 IU/L (10-42); BILIRUBIN,TOTAL 0.6 mg/dL (0.2-1.0); BUN - BLOOD UREA NITROGEN 12 mg/dL (6-20); CALCIUM 9.3 mg/dL (8.5-10.3); CARBON DIOXIDE - CO2 28 mmol/L (21-32); CHLORIDE 105 mmol/L (101-111); CHOL/HDL RATIO 4.5 (<4.4); CHOLESTEROL 198 mg/dL; CREATININE 0.7 mg/dL (0.4-1.0); GFR - MDRD 91 (>89); GLUCOSE 104 mg/dL (70-100); HDL CHOLESTEROL 44 mg/dL; LDL CHOLESTEROL,CALCULATED 105 mg/dL; LDL/HDL RATIO 2.4 (<4.4); POTASSIUM 3.7 mmol/L (3.5-5.0); SODIUM 141 mmol/L (135-145); TOTAL PROTEIN 7.5 g/dL (6.7-8.2); TRIGLYCERIDES 246 mg/dL; VLDL CHOLESTEROL 49 mg/dL
[2023-01-23 11:13] LABS: THYROID STIMULATING HORMONE 2.78 uIU/mL (0.34-5.60)
== END 2023-01-23 10:22 | disposition home or self-care (01) ==
LOC: LAB 10:21
PROVIDERS: ATTEND Family Medicine
DX: R73.9 Hyperglycemia, unspecified (principal); E66.9 Obesity, unspecified; M35.7 Hypermobility syndrome; M79.7 Fibromyalgia; G43.909 Migraine, unspecified, not intractable, without status migrainosus; J45.909 Unspecified asthma, uncomplicated; M54.50 Low back pain, unspecified; G89.29 Other chronic pain
CPT/HCPCS: 36415; 80053; 80061; 83036; 83721; 84443; 85025

== ENCOUNTER 2023-02-09 12:19 | Emergency (ER) | payer OTHER ==
[2023-02-09 13:00] LABS: BASOPHILS # (AUTO) 0.1 10^3/uL (0.0-0.1); BASOPHILS % (AUTO) 0.6 %; EOSINOPHILS # (AUTO) 0.1 10^3/uL (0.0-0.7); EOSINOPHILS % (AUTO) 1.4 %; HCT - HEMATOCRIT 42.2 % (37.0-47.0); LYMPHOCYTES # (AUTO) 2.2 10^3/uL (1.5-3.5); LYMPHOCYTES % (AUTO) 25.1 %; MEAN CORPUSCULAR HGB CONC 33.2 g/dL (32.0-36.0); MEAN CORPUSCULAR VOLUME 87.4 fL (81.0-99.0); MEAN PLATELET VOLUME 8.9 fL (7.9-10.8); MONOCYTES # (AUTO) 0.6 10^3/uL (0.0-1.0); MONOCYTES % (AUTO) 6.4 %; NEUTROPHILS # (AUTO) 5.9 10^3/uL (1.5-6.6); PLT - PLATELET COUNT 293 10^3/uL (130-450); RED BLOOD COUNT 4.83 10^6/uL (4.20-5.40); RED CELL DISTRIBUTION WIDTH 12.5 % (12.0-15.0); WHITE BLOOD COUNT 8.9 x10^3/uL (4.8-10.8)
--- NOTE | 2023-02-09 13:14 | ED Physician Documentation ---
PD HPI ABD PAIN - Stated complaint Stated Complaint: RT ABD\\SIDE PX - Chief complaint Chief Complaint: Abd Pain - History obtained from History obtained from: Patient - History of Present Illness Timing - onset: How many minutes ago (30), Today Timing - duration: Minutes (30) Timing - details: Abrupt onset, Still present (but has eased significantly and is just milder now, with aching feeling and not sharp as it was.) Quality: Aching, Sharp, Pain Location: RUQ Radiation: Chest (lower right). No: Right flank Improved by: No: Laying still, Vomiting Worsened by: Moving, Breathing, Palpation Associated symptoms: Nausea, Near syncope / syncope (did feel lightheaded with the onset of the pain along with nausea.). No: Vomiting, Hematemesis, Diarrhea, Constipation Similar symptoms before: Diagnosis (she states the feeling is similar to gallbladder spasms she had had prior to GB surgery.) Recently seen: Not recently seen Review of Systems Constitutional: denies: Fever, Chills Throat: denies: Sore throat Respiratory: reports: Cough. 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 : Chronic bladder infection HEENT: Chronic vision loss, Other Psych: Depression, Anxiety, Panic attacks, Post traumatic stress disorder Musculoskeletal: Osteoarthritis, Fibromyalgia, Other Derm: None - Past Surgical History Past Surgical History: Yes General: Cholecystectomy /EMT P: section, Tubal ligation - Present Medications Home Medications: Ambulatory Orders Medication Instructions Recorded Confirmed Albuterol Sulfate [Proair Hfa] 2 puffs INH Q4HR PRN 09/05/14 02/27/19 Cetirizine [ZyrTEC] 10 mg PO DAILY 09/05/14 02/27/19 Sumatriptan Succinate [Imitrex] 100 mg PO ONCE PRN 09/05/14 02/27/19 Venlafaxine [Effexor] 150 tab PO DAILY 09/05/14 02/27/19 Cyclobenzaprine [Flexeril] 10 mg PO QPM PRN 02/17/19 02/27/19 Montelukast Sodium 10 mg PO DAILY 02/17/19 02/27/19 Topiramate 100 mg PO QPM 02/17/19 02/27/19 Docusate Sodium 250Mg Capsule 250 mg PO DAILY #10 capsule 02/27/19 [Colace 250Mg Capsule] HYDROcod/ACETAM 5/325 [[place] 5/325] 1 each PO Q4H #20 tablet 02/27/19 - Allergies Allergies/Adverse Reactions: Allergies Allergy/AdvReac Type Severity Reaction Status Date / Time amoxicillin trihydrate * Allergy Dizziness, Verified 02/09/23 12:45 [From Augmentin] nausea potassium clavulanate * Allergy Dizziness, Verified 02/09/23 12:45 [From Augmentin] nausea fluticasone [From Flonase] AdvReac Unknown Verified 02/09/23 12:45 - Social History Does the pt smoke?: No Smoking Status: Never smoker Does the pt drink ETOH?: No Does the pt have substance abuse?: No - Immunizations Immunizations are current?: Yes - POLST Patient has POLST: No PD ED PE NORMAL - Vitals Vital signs reviewed: Yes - General General: Alert and oriented X 3, Well developed/nourished, Other (appears in moderate discomfort from upper abd pain.) - Neck Neck: Supple, no meningeal sign, No adenopathy - Cardiac Cardiac: RRR, No murmur - Respiratory Respiratory: Clear bilaterally - Abdomen Abdomen: Normal bowel sounds, Soft, Non distended, No organomegaly, Other (tender RUQ with guarding and some percussion tenderness. lower and left abd without tenderness. ) Results - Vitals Vitals: Vital Signs - 24 hr 02/09/23 02/09/23 02/09/23 12:37 14:45 16:00 Temperature 36.6 C Heart Rate 108 H 77 82 Respiratory 16 10 L 16 Rate Blood Pressure 123/76 113/53 L 109/76 O2 Saturation 98 100 97 Oxygen O2 Source Room air - Labs Labs: Laboratory Tests 02/09/23 02/09/23 02/09/23 12:56 12:56 12:56 WBC 8.9 RBC 4.83 Hgb 14.0 Hct 42.2 MCV 87.4 MCH 29.0 MCHC 33.2 RDW 12.5 Plt Count 293 MPV 8.9 Neut # (Auto) 5.9 Lymph # (Auto) 2.2 [place] # (Auto) 0.6 Eos # (Auto) 0.1 Baso # (Auto) 0.1 Absolute Nucleated RBC 0.00 Nucleated RBC % 0.0 Sodium 139 Potassium 3.6 Chloride 107 Carbon Dioxide 24 Anion Gap 8.0 BUN 12 Creatinine 0.7 Estimated GFR (MDRD) 91 Glucose 102 H Calcium 9.5 Total Bilirubin 0.5 AST 21 ALT 17 Alkaline Phosphatase 92 Troponin I High Sens < 2.3 L Total Protein 7.9 Albumin 4.1 Globulin 3.8 Albumin/Globulin Ratio 1.1 Lipase 26 - Rads (name of study) ruq U/S Relevant Findings:: Prelim report reviewed, See rad report, Other ( tech state s CBD is normal size and no materail seen in it. Noted is an incidental ) PD Medical Decision Making - ED course Complexity details: reviewed results, re-evaluated patient (she felt better with mainly Toradol.), considered differential (abrupt onset RUQ pain with nausea, which she says feels "like my gallbladder". Prior CCY. No chest pain per se nor dyspnea. COnsider pancreas, liver process or most likely temporary common bile duct blockage. Can get labs and RUQ U/S to eval for persistne tCBD blockages or material. ), d/w patient Departure - Departure Disposition: 01 Home, Self Care Clinical Impression: Right upper quadrant abdominal pain, Liver cyst Condition: Stable Record reviewed to determine appropriate education?: Yes Instructions: ED Abdominal Pain Female Non-Specific Abdominal Pain Follow-Up: Irving Kaplan MD [Primary Care Provider] - Comments: Your ultrasound shows a normal common bile duct without any blockages or debris visible. Your blood tests are good without any signs of liver or pancreas problems in your chest x-ray EKG and troponin are normal so no signs of heart or lung cause for the symptoms. Also noted is fatty liver and a small 2 cm cyst like area with recommendation to follow up with outpatient CT/MRI for better evaluation. By the sound of it it sounds most likely that you had a temporary blockage of the common bile duct giving you the "gallbladder like" symptoms. At this point it appears open and patent and no signs of back pressuring so I would not predi ct recurrent episodes. Normal activity and diet. See how you do. If you do have recurrent episodes like this, then further investigation may be indicated but at this point I do not feel compelled for other modalities such as CT scan etc. Discharge Date/Time: 02/09/23 16:15
[2023-02-09 13:15] LABS: ALBUMIN 4.1 g/dL (3.2-5.5); ALBUMIN/GLOBULIN RATIO 1.1 (1.0-2.2); BILIRUBIN,TOTAL 0.5 mg/dL (0.2-1.0); CALCIUM 9.5 mg/dL (8.5-10.3); CREATININE 0.7 mg/dL (0.4-1.0); POTASSIUM 3.6 mmol/L (3.5-5.0); TOTAL PROTEIN 7.9 g/dL (6.7-8.2)
--- NOTE | 2023-02-09 13:25 | XRAY Report ---
PROCEDURE: Chest 1 View X-Ray INDICATIONS: Chest pain TECHNIQUE: One view of the chest was acquired. COMPARISON: None. FINDINGS: Surgical changes and devices: None. Lungs and pleura: No pleural effusions or pneumothorax. Lungs are clear. Mediastinum: Mediastinal contours appear normal. Heart size is normal. Bones and chest wall: No suspicious bony lesions. Overlying soft tissues appear unremarkable. IMPRESSION: No acute cardiopulmonary process. Reviewed by: Elana Gomez MD on 02/09/2023 12:24 PM YAN Approved by: Elana Gomez MD on 02/09/2023 12:24 PM YAN Station ID: [id number]
[2023-02-09] MEDS ORDERED: KETOROLAC 15 MG/ML VIAL IVP STA (13:34)
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
[2023-02-09 16:09] VITALS: BP 109/76
== END 2023-02-09 16:15 | disposition home or self-care (01) ==
LOC: ED 12:19
DX: K76.89 Other specified diseases of liver (principal)
CPT/HCPCS: 36415; 80053; 83690; 84484; 85025; 93005; 96374; 99284

== ENCOUNTER 2023-02-20 10:17 | Outpatient (CLI) | payer OTHER ==
--- NOTE | 2023-02-20 16:52 | XRAY Report ---
PROCEDURE: Foot 2 View RT INDICATIONS: DECREASED DORSALIS PEDIS PULSE TECHNIQUE: 2 views of the foot were acquired. COMPARISON: None. FINDINGS: Bones: No fractures or dislocations. No suspicious bony lesions. Soft tissues: No suspicious soft tissue calcifications or masses. IMPRESSION: No acute fracture. No osseous lesion. If symptoms and/or clinical suspicion for pathology continue, f urther assessment with repeat plain films, or advanced imaging (e.g., CT, MRI, or bone scan) is recom mended for further assessment. Reviewed by: Kali Guillen MD on 02/20/2023 4:50 PM PDT Approved by: Kali Guillen MD on 02/20/2023 4:50 PM PDT Station ID: [id number]
== END 2023-02-20 10:18 | disposition home or self-care (01) ==
LOC: DI 10:17
PROVIDERS: ATTEND Physician Assistant
DX: R09.89 Other specified symptoms and signs involving the circulatory and respiratory systems (principal); M79.671 Pain in right foot